=== PATIENT | female | born 1940 | race Caucasian/White ===

== ENCOUNTER → 2017-08-29 | Outpatient (CLI) | payer MEDICARE | LOC: LABWHC1 12:02 | PROVIDERS: ATTEND Internal Medicine | DX: D68.51 Activated protein C resistance (principal) | CPT/HCPCS: 36415; 81241 ==

== ENCOUNTER → 2020-10-08 | Outpatient (CLI) | payer MEDICARE ==
--- NOTE | 2020-10-08 15:47 | XR ---
EXAMINATION TYPE: XR lumbar spine 2 or 3V DATE OF EXAM: 10/08/2020 COMPARISON: NONE HISTORY: Low back pain TECHNIQUE: 3 views lumbar spine FINDINGS: There is levoscoliosis of the lumbar spine with multilevel endplate sclerosis and osteophytosis. Mult ilevel facet arthropathy is present. Vertebral body heights are preserved. Vascular calcifications ar e seen. There is mild retrolisthesis of L3 on L4 measuring 4 mm. There is mild anterolisthesis of L4 on 5 measuring 5 mm. IMPRESSION: Levoscoliosis with multilevel disc disease and osteoarthritic changes of the lumbar spine. Mild retrolisthesis of L3 on 4 and mild anterolisthesis of L4 on 5.
== END | disposition home or self-care (01) ==
LOC: RADXRWHC 14:59
PROVIDERS: ATTEND Internal Medicine
DX: M51.36 Other intervertebral disc degeneration, lumbar region (principal); M41.86 Other forms of scoliosis, lumbar region; M43.16 Spondylolisthesis, lumbar region; M47.816 Spondylosis without myelopathy or radiculopathy, lumbar region
CPT/HCPCS: 72100

== ENCOUNTER → 2021-06-16 | Outpatient (CLI) | payer MEDICARE ==
--- NOTE | 2021-06-16 16:10 | XR ---
EXAMINATION TYPE: XR knee complete RT DATE OF EXAM: 06/16/2021 COMPARISON: None HISTORY: Pain in left knee TECHNIQUE: 3 view left knee FINDINGS: Joint spaces are preserved. Mild medial tibial plateau spurring is present. No joint effusi on is evident. Anterior superior patellar spur is noted. IMPRESSION: 1. Minimal degenerative joint changes left knee.
== END | disposition home or self-care (01) ==
LOC: RADXRMAIN 15:25
PROVIDERS: ATTEND Family Medicine
DX: M17.12 Unilateral primary osteoarthritis, left knee (principal)

== ENCOUNTER → 2021-08-24 | Outpatient (CLI) | payer MEDICARE ==
--- NOTE | 2021-08-25 07:19 | BD ---
EXAMINATION TYPE: Axial Bone Density DATE OF EXAM: 08/24/2021 COMPARISON: NONE CLINICAL HISTORY: 80 years year old Female. ICD-10 CODE: N95.9 OSTEOPOROSIS Height: 68.5 Weight: 185.5 FRAX RISK QUESTIONS: Alcohol (3 or more units per day): no Family History (Parent hip fracture): no Glucocorticoids (More than 3mos): no (Ex: prednisone, prednisolone, methylprednisolone, dexamethasone, and hydrocortisone). History of Fracture in Adulthood: no Secondary Osteoporosis: 1. Type 1 Diabetes: no 2. Hyperthyroidism: no 3. Menopause before 45: no 4. Malnutrition: no 5. Chronic liver disease: no Rheumatoid Arthritis: no Current Tobacco Use: no RISK FACTORS HISTORY OF: Surgery to Spine/Hip(right/left)/Wrist (right/left): no Family History of Osteoporosis: no Active: yes Diet low in dairy products/other sources of calcium: no Postmenopausal woman: yes Lost more than 2 inches in height since high school: no MEDICATIONS: Thyroid Medications: levothyroxine How Lon years Additional History: EXAM MEASUREMENTS: Bone mineral densitometry was performed using the [employer] System. Bone mineral density as measured about the Lumbar spine is: ----- L1-L4(G/cm2): 1.332 T Score Values are as follows: ----- L1: 2.6 ----- L2: -0.6 ----- L3: 0.9 ----- L4: 2.0 ----- L1-L4: 1.3 Bone mineral density : baseline Bone mineral density about the R hip (g/cm2): 0.793 Bone mineral density about the L hip (g/cm2): 0.828 T Score values are as follows: -----R Neck: -1.8 -----L Neck: -1.5 -----R Total: -0.9 -----L Total: -0.8 Bone mineral density : baseline FRAX%s: The graph provided illustrates a 14.1% chance for a major osteoporotic fx and a 3.7% chance f or the hips probability for fx in 10 years time. IMPRESSION: Osteopenia (T Score between -2.5 and -1). There is slightly increased risk of fracture and the patient may be considered for treatment. Re-Screen 2-5 years. NOTE: T-SCORE=SD OF THE YOUNG ADULT MEAN.
== END | disposition home or self-care (01) ==
LOC: RADBDWWP 15:46
PROVIDERS: ATTEND Internal Medicine
DX: M85.89 Other specified disorders of bone density and structure, multiple sites (principal); Z78.0 Asymptomatic menopausal state
CPT/HCPCS: 77080

== ENCOUNTER → 2023-02-21 | Outpatient (CLI) | payer MEDICARE ==
[2023-02-22 01:33] LABS: Blood Urea Nitrogen 21.9 mg/dL (9.0-27.0); Carbon Dioxide 22.2 mmol/L (21.6-31.8); Chloride 102 mmol/L (96-109); Potassium 5.5 mmol/L (3.5-5.5); Sodium 135 mmol/L (135-145)
[2023-02-22 02:47] LABS: HCT 38.7 % (37.2-46.3); HGB 12.5 g/dL (12.0-15.0); MCH 26.3 pg (27.0-32.0); MCHC 32.3 g/dL (32.0-37.0); MCV 81.3 FL (80.0-97.0); Mean Platelet Volume 12.7 FL (9.5-12.2); NRBC Per 100 WBC 0 X 10*3/uL (0.00-0.01); Platelet Count 212 X 10*3/uL (140-440); RBC 4.76 X 10*6/uL (4.10-5.20); RDW 14.5 % (11.5-14.5); WBC 6.73 X 10*3/uL (4.50-10.00)
== END | disposition home or self-care (01) ==
LOC: LABPAT 16:13
PROVIDERS: ATTEND Internal Medicine Clinical Cardiac Electrophysiology
DX: Z01.812 Encounter for preprocedural laboratory examination (principal); I48.0 Paroxysmal atrial fibrillation
CPT/HCPCS: 36415; 80051; 82565; 84520; 85027

== ENCOUNTER 2023-03-05 07:48 | Day surgery (SDC) | payer MEDICARE ==
[~2023-03-05 07:48] MED LIST: HYDROmorphone 0.5 MG/0.5 ML SYRINGE IVP PRN; LACTATED RINGERS 1,000 ML IV SCH; MIDAZOLAM 2 MG/2 ML VIAL IV PRN; ONDANSETRON 4 MG/2 ML VIAL IVP ONE; SODIUM CHLORIDE 0.9% 1,000 ML IV ONE; SODIUM CHLORIDE 0.9% 1,000 ML IV SCH
--- NOTE | 2023-03-05 09:47 | P.HPCAR ---
History of Present Illness This is Dr. Rosario dictating an H/P on this patient The patient was interviewed and examined IMPRESSION / ASSESSMENT: Recurrent paroxysmal atrial fibrillation Symptomatic with shortness of breath and feeling weak and fatigued during these episodes 1 episode associated with collapse requiring hospitalization Normal coronary arteries PLAN: Proceed with PVI/A. fib ablation HPI Patient continues to have palpitations and lightheadedness No chest discomfort No loss of consciousness Denies any fever chills cough expectoration ROS: No fever chills or rigors, no cough, phlegm or expectoration, no nausea, vomiting or diarrhea, no hematuria, dysuria, no musculoskeletal complaints, no strokes or seizures, no skin lesions. EXAMINATION: Afebrile 97.0, pulse rate 69, blood pressure 141/70 Breath sounds are clear no rhonchi no crackles Heart sounds S1 and S2 are normal Abdomen soft Extremities are warm REVIEW OF LABS, ECG & MEDICAL DATA Metoprolol, losartan, levothyroxine 112 g daily, Lexapro Lipitor and ELIQUIS Repeat TSH pending Physical Exam Vitals: Vital Signs Temp Pulse Resp BP Pulse Ox 03/05/23 08:07 97.0 F L 69 16 141/70 97 Intake and Output 03/04/23 03/05/23 03/05/23 22:59 06:59 14:59 Intake Total 0 Balance 0 Intake: IV 0 Other: Weight 82.6 kg Past Medical History Past Medical History: Atrial Fibrillation, Hyperlipidemia, Hypertension, Thyroid Disorder Additional Past Medical History / Comment(s): change in bowel habits wheezing last couple of days having some shortness of breath with ambulation, See Dr Rosario's h & p History of Any Multi-Drug Resistant Organisms: None Reported Past Surgical History: Breast Surgery Additional Past Surgical History / Comment(s): colonoscopy, partial thyroidectomy, breast biopsy,loop recorder Past Anesthesia/Blood Transfusion Reactions: Previous Problems w/ Anesthesia Additional Past Anesthesia/Blood Transfusion Reaction / Comment(s): had problem once w/slow heart rate after a surg. slow to wake Smoking Status: Former smoker - Past Family History Sister(s) Family Medical History: Cancer Brother(s) Family Medical History: Cancer Physical Examination Vital Signs Temp Pulse Resp BP Pulse Ox 03/05/23 08:07 97.0 F L 69 16 141/70 97 Intake and Output 03/04/23 03/05/2323 22:59 06:59 14:59 Intake Total 0 Balance 0 Intake: IV 0 Other: Weight 82.6 kg Results Current Medications Generic Name Dose Route Start Last Admin Trade Name Bienvenido PRN Reason Stop Dose Admin Hydromorphone HCl 0.5 mg 03/05/23 07:00 Hydromorphone 0.5 Mg/0.5 Ml Syringe IVP 03/05/23 23:00 Q5M PRN Phase 1 or 2 - Pain Control Sodium Chloride 1,000 mls @ 20 mls/hr 03/05/23 05:54 Saline 0.9% IV 04/04/23 05:55 .Q24H MARIA LUISA Lactated Ringer's 1,000 mls @ 20 mls/hr 03/05/23 05:54 Lactated Ringers IV 04/04/23 05:55 .Q24H MARIA LUISA Midazolam HCl 2 mg 03/05/23 07:00 Midazolam 2 Mg/2 Ml Vial IV 03/05/23 23:00 ONCE PRN Pre-Op Anxiety Intake and Output 03/04/23 03/05/23 03/05/23 22:59 06:59 14:59 Intake Total 0 Balance 0 Intake: IV 0 Other: Weight 82.6 kg Patient Weight 03/06/23 06:59 Weight 82.6 kg
[2023-03-05] MEDS ORDERED: HEPARIN SOD,PORK IN 0.45% NACL 25,000 UNIT in 0.45% NACL 1 250ML.BAG IV ONE (10:05)
[2023-03-05] MEDS ORDERED: LIDOCAINE 1% INJ 10MG/ML (20 ML MDV) SQ ONE (10:05)
[2023-03-05 10:14] LABS: T4, Free (Free Thyroxine) 2.33 ng/dL (0.78-2.19)
[2023-03-05] MEDS ORDERED: IOPAMIDOL-370 100ML BTL INJ ONE (10:46)
[2023-03-05] MEDS ORDERED: ACETAMINOPHEN TAB 325 MG TAB PO PRN (13:07)
[2023-03-05] MEDS ORDERED: ACETAMINOPHEN IV (For NPO) 1,000 MG in EMPTY BAG 1 BAG IVPB ONE (13:07)
--- NOTE | 2023-03-05 13:14 | P.EPPROC ---
- EP Procedure Note Electrophysiology Procedure Note: PROCEDURE A. fib ablation DIAGNOSIS Paroxysmal Atrial fibrillation, symptomatic, refractory to therapy RESULT No left atrial appendage mass seen on intracardiac echo Enlarged left atrium Thickened pericardium with pericardial exudate, small, at the base of the LV consistent with chronic pericarditis Elevated left atrial pressures, mean pressure 18 mmHg Successful A. fib ablation/pulmonary vein isolation of all veins using cryo- ablation Complete entrance block in all 4 veins confirmed No evidence for phrenic nerve injury Esophageal deflection YES Electrical cardioversion with a synchronized shock across the chest YES PROCEDURE DETAILS Written informed consent prior to procedure. Patient brought to the EP lab. General anesthesia given. Heparin administered. A city maintained above 300 seconds Both groins prepped and draped per protocol and venous sheaths placed. Esop hagus intubated, circa catheter for temperature monitoring an endoscope for possible esophageal deflection. Phrenic nerve monitoring performed. Esophageal temperature monitoring performed. Esophageal deflection performed if circa catheter overlapping with the balloon or circa temperature less than 27.5C Intracardiac echocardiography performed. Pericardium evaluated. Left atrial appendage evaluated. Left atrium evaluated along with pulmonary veins Transseptal catheterization performed under fluoroscopic guidance and intracardiac echo guidance Cryoablation sheath exchanged, balloon catheter along with achieve catheter placed in the left atrium. Pulmonary veins isolated in the following sequence: Left superior pulmonary vein followed by left inferior pulmonary vein, followed by right inferior pulmonary vein and lastly right superior pulmonary vein. Phrenic nerve stimulation along with capture thresholds within the SVC and right superior pulmonary vein to identify the phrenic nerve proximity to the cryo- balloon. Pulmonary veins isolated and confirmed with entrance and exit block. Phrenic nerve integrity confirmed at the end of the procedure Electrical cardioversion performed for persistence of atrial fibrillation despite successful ablation. Diagnostic catheters for the high right atrium, His bundle, coronary sinus placed. LA and RA pressures recorded RA pressure: 15 LA pressure: 15/03/18 Diagnostic EP study with coronary sinus pacing and recording Baseline measurements: HV interval 50 ms after electrical cardioversion WA interval 200 ms, QRS 153 ms, QT interval 500 ms, sinus cycle length 1300 ms Venous sheaths were removed and hemostasis assured with a closure device. Patient extubated and transferred to recovery PROCEDURES PERFORMED Diagnostic EP study CS pacing and recording Left and right transseptal catheterization Catheter the mapping of the tachycardia Intracardiac echocardiography Pulmonary vein isolation with transseptal and comprehensive EPS, [id number] Electrical cardioversion with a synchronized shock across the chest [id number]
--- NOTE | 2023-03-05 13:17 | P.PRLE ---
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
[2023-03-05] MEDS: APIXABAN 5 MG TAB PO SCH (20:02)
[2023-03-05] MEDS ORDERED: ATORVASTATIN 10 MG TAB PO SCH (21:00)
[2023-03-05] MEDS ORDERED: LOSARTAN 50 MG TAB PO SCH (21:00)
[2023-03-06 02:45] VITALS: RESP 15
[2023-03-06 07:30] VITALS: BP 122/64; PULSE 58; TEMP 98.3
[2023-03-06] MEDS ORDERED: METOPROLOL SUCCINATE (ER) 25 MG TAB.ER.24H PO SCH (09:00)
[2023-03-06] MEDS ORDERED: ESCITALOPRAM 10 MG TAB PO SCH (09:00)
[2023-03-06] MEDS: APIXABAN 5 MG TAB PO SCH (09:21)
--- NOTE | 2023-03-06 19:30 | P.DS ---
Providers Attending physician: Wilbert Rosario Primary care physician: Matthew Tucker MD Hospital Course: Patient is doing well. She has a sore throat She is no chest discomfort She walked around the room and the bathroom No dizziness On examination heart sounds are normal Abdomen is soft nontender Groins of healed well no hematoma no swelling Lungs are clear Twelve-lead EKG is normal Final diagnosis Symptomatic atrial fibrillation, paroxysmal Refractory to therapy Suppressed TSH on repeat TSH measurements today Chronic Pericarditis on intracardiac echo consistent with her history of overt about 1 year back Plan Continue ELIQUIS Reduce the dose of levothyroxine to 88 g by mouth daily Continue other cardiac medications Follow-up with Dr. Daly in 1 week Plan - Discharge Summary Discharge Rx Participant: No New Discharge Prescriptions: New Levothyroxine Sodium 88 mcg PO DAILY #90 tab Discontinued Levothyroxine Sodium [Synthroid] 112 mcg PO DAILY No Action Atorvastatin [Lipitor] 10 mg PO HS Losartan Potassium [Cozaar] 100 mg PO HS Metoprolol Succinate (ER) [Toprol Xl] 12.5 mg PO DAILY Apixaban [Eliquis] 5 mg PO BID Escitalopram [Lexapro] 10 mg PO DAILY Discharge Medication List Atorvastatin [Lipitor] 10 mg PO HS 01/13/16 [History] Losartan Potassium [Cozaar] 100 mg PO HS 01/13/16 [History] Apixaban [Eliquis] 5 mg PO BID 02/28/23 [History] Escitalopram [Lexapro] 10 mg PO DAILY 02/28/23 [History] Metoprolol Succinate (ER) [Toprol Xl] 12.5 mg PO DAILY 02/28/23 [History] Levothyroxine Sodium 88 mcg PO DAILY #90 tab 03/05/23 [Rx] Follow up Appointment(s)/Referral(s): Wilbert Rosario MD [STAFF PHYSICIAN] - As Needed (Follow-up with Dr. Dlay in 1 week) Monica Daly MD [STAFF PHYSICIAN] - 03/12/23 2:15 pm Patient Instructions/Handouts: Cardiac Ablation (DC) Activity/Diet/Wound Care/Special Instructions: Post EP study - Ablation instructions 1. Keep access sites dry for 2 days. 2. No heavy lifting or straining for 2 days. 3. Avoid bending the hips repeatedly for 2 days. 4. You may go up and down stairs slowly Call if the following is noted 1. Bleeding, increasing swelling or pain at the access sites. 2. Increasing chest discomfort, especially upon taking a deep breath. 3. Increasing shortness of breath, at rest or with exertion. 4. Undue cough / phlegm 5. Difficulty or pain while swallowing. 6. Pain or change in color in the extremities. 7. Fever, chills, rigors. 8. Increasing headache or neurologic symptoms. 9. Dizziness, fainting, palpitations Reduce levothyroxine to 88 g by mouth daily Drink plenty of water and move around, walking around. Discharge Disposition: HOME SELF-CARE
== END 2023-03-06 14:10 | disposition home or self-care (01) ==
LOC: CATHEP 07:48 → 6NMEDSUR 11:48 → CATHEP 03-06 14:10
PROVIDERS: ATTEND Internal Medicine Clinical Cardiac Electrophysiology
DX: I48.0 Paroxysmal atrial fibrillation (principal); I31.9 Disease of pericardium, unspecified; I10 Essential (primary) hypertension; E78.5 Hyperlipidemia, unspecified; Z90.49 Acquired absence of other specified parts of digestive tract; Z87.891 Personal history of nicotine dependence; Z79.899 Other long term (current) drug therapy
CPT/HCPCS: 93656; 86900; 86901; 84439; 84443 ×2; 86850; C1894 ×2; C1769 ×3; C1760; C1730 ×2; C1759; C1893; C1733; C1766; J2001; J0131; Q9967; J1644

== ENCOUNTER → 2023-04-04 | Outpatient (CLI) | payer MEDICARE ==
[2023-04-04 18:50] LABS: T4, Free (Free Thyroxine) 1.53 ng/dL (0.80-1.80)
== END | disposition home or self-care (01) ==
LOC: LABWHC1 14:02
PROVIDERS: ATTEND Internal Medicine Interventional Cardiology
DX: I48.91 Unspecified atrial fibrillation (principal); E03.9 Hypothyroidism, unspecified
CPT/HCPCS: 36415; 84439; 84443

== ENCOUNTER → 2023-05-24 | Outpatient (CLI) | payer MEDICARE ==
[2023-05-24 16:42] LABS: HCT 40.2 % (37.2-46.3); HGB 12.5 g/dL (12.0-15.0); MCH 24.7 pg (27.0-32.0); MCHC 31.1 g/dL (32.0-37.0); MCV 79.3 FL (80.0-97.0); Mean Platelet Volume 11.5 FL (9.5-12.2); NRBC Per 100 WBC 0 X 10*3/uL (0.00-0.01); Platelet Count 202 X 10*3/uL (140-440); RBC 5.07 X 10*6/uL (4.10-5.20); RDW 16.2 % (11.5-14.5); WBC 7.58 X 10*3/uL (4.50-10.00)
[2023-05-24 16:56] LABS: Blood Urea Nitrogen 14.7 mg/dL (9.0-27.0); Carbon Dioxide 26.1 mmol/L (21.6-31.8); Chloride 101 mmol/L (96-109); Potassium 5.4 mmol/L (3.5-5.5); Sodium 137 mmol/L (135-145)
== END | disposition home or self-care (01) ==
LOC: LABPAT 10:06
PROVIDERS: ATTEND Internal Medicine Clinical Cardiac Electrophysiology
DX: Z01.812 Encounter for preprocedural laboratory examination (principal); I48.0 Paroxysmal atrial fibrillation
CPT/HCPCS: 36415; 80051; 82565; 84520; 85027

== ENCOUNTER 2023-05-28 13:10 | Day surgery (SDC) | payer MEDICARE ==
[2023-05-23 10:13] VITALS: BMI 27.3
[2023-05-28] MEDS: SODIUM CHLORIDE 0.9% 1,000 ML IV SCH (13:54)
[2023-05-28] MEDS ORDERED: PROPOFOL 10 MG/ML 20 ML VIAL IV ONE (14:18)
[2023-05-28] MEDS ORDERED: PHENYLEPHRINE 10 MG/ML VIAL ONE (14:18)
[2023-05-28] MEDS ORDERED: NEOSTIGMINE 1 MG/ML 10 ML VIAL ONE (14:18)
[2023-05-28] MEDS ORDERED: diphenhydrAMINE 50 MG/ML 1 ML VIAL ONE (14:18)
[2023-05-28] MEDS ORDERED: GLYCOPYRROLATE 0.2 MG/ML 2 ML VIAL ONE (14:18)
[2023-05-28] MEDS ORDERED: SUCCINYLCHOLINE CHLORIDE 200 MG/10 ML VIAL IV ONE (14:18)
[2023-05-28] MEDS ORDERED: HEPARIN SODIUM,PORCINE 5,000 UNIT/ML 1 ML VIAL ONE (14:18)
[2023-05-28] MEDS ORDERED: LIDOCAINE 1% INJ 10MG/ML (20 ML MDV) ONE ×2 (14:18→14:40)
[2023-05-28] MEDS ORDERED: fentaNYL (PF) 50 MCG/ML 2 ML AMP ONE (14:18)
[2023-05-28] MEDS ORDERED: PROTAMINE SULFATE 10 MG/ML 5 ML VIAL ONE (14:18)
[2023-05-28] MEDS ORDERED: ROCURONIUM 10 MG/ML (5 ML VIAL) IV ONE (14:18)
[2023-05-28] MEDS: LIDOCAINE 1% INJ 10MG/ML (20 ML MDV) SQ ONE (14:47)
[2023-05-28] MEDS: HEPARIN SODIUM,PORCINE 10,000 UNIT in SODIUM CHLORIDE 0.9% 1,000 ML IRRIGATION ONE (15:15)
--- NOTE | 2023-05-28 16:05 | P.HPCAR ---
History of Present Illness This is Dr. Rosario dictating an H/P on this patient The patient was interviewed and examined IMPRESSION / ASSESSMENT: Recurrent sustained atrial flutter with severe bradycardia intermittently associated with syncope When in sinus rhythm no significant bradycardia noted History of atrial fibrillation, paroxysmal status post cryoablation of the pulmonary veins Patient has a loop monitor in situ History of pericarditis, likely viral Hypothyroidism Underlying sick sinus syndrome with AV node disease PLAN: Ablation for atrial flutter No beta-blockers Continue levothyroxine 75 mcg p.o. daily Continue monitoring for any bradycardia Permanent pacemaker only if she has bradycardia in sinus rhythm or she has recurrent atrial fibrillation that requires rate control medications HPI Patient continues to feel fatigued tired She has recurrent palpitations she does not feel well She came in with an atrial arrhythmia consistent with typical atrial flutter today ROS: No fever chills or rigors, no cough, phlegm or expectoration, no nausea, vomiting or diarrhea, no hematuria, dysuria, no musculoskeletal complaints, no strokes or seizures, no skin lesions. EXAMINATION: Heart rate is irregular in the 70s, blood pressure 177/80 mmHg afebrile Breath sounds are reduced bilaterally no rhonchi no crackles Heart sounds S1-S2 irregular no murmurs No lower extremity edema REVIEW OF LABS, ECG & MEDICAL DATA On levothyroxine 75 mcg p.o. daily, losartan 50 mg twice daily, atorvastatin and Eliquis 5 mg twice daily Physical Exam Vitals: Vital Signs Temp Pulse Resp BP Pulse Ox 05/28/23 13:53 97.5 F L 74 18 177/80 94 L Intake and Output 05/28/23 05/28/23 05/28/23 06:59 14:59 22:59 Intake Total 220 267 Balance 220 267 Intake: IV 220 267 Other: Weight 83 kg Past Medical History Past Medical History: Atrial Fibrillation, Atrial Flutter, Hyperlipidemia, Hypertension, Thyroid Disorder Additional Past Medical History / Comment(s): See Dr Rosario's H&P,prednisone Apr 2023,hospitalized @ [facility] for atrial flutter and syncope in Apr 2023 History of Any Multi-Drug Resistant Organisms: None Reported Past Surgical History: Breast Surgery, Cardiac Ablation Additional Past Surgical History / Comment(s): colonoscopy, partial thyroidectomy, breast biopsy,cardioversion Past Anesthesia/Blood Transfusion Reactions: Previous Problems w/ Anesthesia, Motion Sickness Additional Past Anesthesia/Blood Transfusion Reaction / Comment(s): had problem once w/slow heart rate after a surg- pt does not recall. has a hard time waking up after anesthesia Smoking Status: Former smoker - Past Family History Sister(s) Family Medical History: Cancer Brother(s) Family Medical History: Cancer Son(s) Family Medical History: Cancer Additional Family Medical History / Comment(s): testicular Physical Examination Vital Signs Temp Pulse Resp BP Pulse Ox 05/28/23 13:53 97.5 F L 74 18 177/80 94 L Intake and Output 05/28/23 05/28/23 05/28/23 06:59 14:59 22:59 Intake Total 220 267 Balance 220 267 Intake: IV 220 267 Other: Weight 83 kg Results Current Medications Generic Name Dose Route Start Last Admin Trade Name Freq PRN Reason Stop Dose Admin Sodium Chloride 1,000 mls @ 20 mls/hr 05/28/23 05:58 05/28/23 13:54 Saline 0.9% IV 06/27/23 05:59 220 mls .Q24H MARIA LUISA Administration Lactated Ringer's 1,000 mls @ 20 mls/hr 05/28/23 05:58 Lactated Ringers IV 06/27/23 05:59 .Q24H MARIA LUISA Intake and Output 05/28/23 05/28/23 05/28/23 06:59 14:59 22:59 Intake Total 220 267 Balance 220 267 Intake: IV 220 267 Other: Weight 83 kg Patient Weight 05/29/23 06:59 Weight 83 kg
--- NOTE | 2023-05-28 16:09 | P.PRLE ---
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 Fermin has atrial fibrillation and she has undergone successful ablation of the pulmonary veins for management of atrial fibrillation However she has had recurrent episodes of typical atrial flutter symptomatic, with intrinsic rate control While on beta-blockers, she had significant bradycardia with pauses resulting in syncope She was admitted to the [facility] for this I had performed electrical cardioversion on her and while in sinus rhythm, in the absence of beta-blockers, she has had no bradycardia Hello she went back into atrial flutter with a controlled ventricular response and was not feeling well She was brought in today for typical atrial flutter ablation Successful ablation was performed with bidirectional block Impression Paroxysmal atrial fibrillation status post cryoablation of the pulmonary veins in the past Viral pericarditis with small pericardial effusion with thickened pericardium Recurrent typical atrial flutter intrinsically rate controlled Severe bradycardia on metoprolol during atrial flutter only When she is off beta-blockers, she has no evidence for sinus bradycardia or AV block while in normal rhythm Plan Continue levothyroxine 75 mcg p.o. daily. Her TSH has normalized Continue Eliquis 5 mg twice daily No beta-blockers no AV cornell blockers We will continue to monitor her via her implanted loop and as long as she has no significant bradycardia or does not require beta-blockers or other AV cornell blocking drugs, she will not require permanent pacing Thank you for entrusting me with the care of the patient Warm regards Sincerely Wilbert Rosario
--- NOTE | 2023-05-28 16:15 | P.EPPROC ---
- EP Procedure Note Electrophysiology Procedure Note: Diagnosis Typical atrial flutter, intrinsically rate controlled Severe bradycardia with pauses only during atrial flutter when given AV cornell blocking drugs Very symptomatic during atrial flutter Final diagnosis Cavotricuspid isthmus dependent atrial flutter Status post successful mapping followed by ablation Complete bidirectional block with differential pacing Mildly abnormal sinus node function and a mildly abnormal AV node function Plan Avoid all AV cornell blocking drugs Monitor for any bradycardia arrhythmias and atrial fibrillation via implanted loop monitor Continue Eliquis Details Patient was brought to the EP lab in a fasting state. Written informed consent was obtained prior to the procedure. Procedure performed under general anesthesia IV heparin given through the procedure Venous sheaths placed in the right left femoral veins Diagnostic mapping and ablation catheters placed Intracardiac echo revealed thickened pericardium with small effusion, chronic consistent with old viral pericarditis, chronic No intracardiac masses in the LA or left atrial appendage or right atrium Patient was in atrial arrhythmia with a cycle length of about 240 ms Diagnostic catheters placed in the coronary sinus Mapping and ablation catheter placed in the cavotricuspid isthmus Entrainment mapping confirmed cavotricuspid dependency Electrical cardioversion performed 3D electroanatomic mapping performed in the cavotricuspid isthmus Thick eustachian ridge A complete line of block was made without any inotropic gaps This line was interrogated with differential pacing Isthmus conduction time 157 ms uniformly across the line Bidirectional block proven Following that in sinus rhythm EP study performed Sinus cycle length 1 207 ms, CO interval 198 ms, QRS 165 ms right bundle branch block pattern and QT interval 476 ms AH interval 104 ms and HV interval 41 ms Sinus node recovery times at a pacing cycle length of 600 ms was 1513 ms., Mildly prolonged AV node Wenckebach block 440 ms, mildly prolonged All venous sheaths removed Hemostasis assured Patient tolerated procedure well without any acute complications
[2023-05-28] MEDS ORDERED: ACETAMINOPHEN TAB 325 MG TAB PO PRN (16:16)
[2023-05-28] MEDS: ACETAMINOPHEN IV (For NPO) 1,000 MG in EMPTY BAG 1 BAG IVPB ONE (16:31)
[2023-05-28] MEDS: LACTATED RINGERS 1,000 ML IV SCH (19:40)
[2023-05-28] MEDS: LOSARTAN 50 MG TAB PO SCH (20:37)
[2023-05-28] MEDS: APIXABAN 5 MG TAB PO SCH (20:37)
[2023-05-28] MEDS: ATORVASTATIN 10 MG TAB PO SCH (20:37)
[2023-05-29 07:47] VITALS: BP 133/72; PULSE 58; RESP 19; TEMP 97.8
--- NOTE | 2023-05-29 08:39 | US ---
EXAMINATION TYPE: US lower ext pseudo artery LT DATE OF EXAM: 05/29/2023 COMPARISON: NONE CLINICAL INDICATION: Female, 82 years old with history of postop pain, r/o pseudoaneurysm; left groin EXAM PERFORMED: Grayscale and color Doppler duplex imaging performed of the groin, post cardiac hanh ter to assess for pseudoaneurysm. SIDE PERFORMED: Left Color and Waveform Doppler performed to assess for the presence of pseudoaneurysm; Is there ultrasound evidence of a pseudoaneurysm: no Is there evidence of AV shunting: no Is there a fluid collection present: no IMPRESSION: The variety lathe operator was unable to identify a pseudoaneurysm within the left groin.
[2023-05-29] MEDS: ESCITALOPRAM 10 MG TAB PO SCH (09:08)
[2023-05-29] MEDS: LEVOTHYROXINE 75 MCG TAB PO SCH (09:08)
--- NOTE | 2023-05-29 10:30 | P.DS ---
Providers Attending physician: Wilbert Rosario Primary care physician: Matthew Tucker MD Hospital Course: Patient is doing well. No chest discomfort dizziness or lightheadedness Rhythm is regular No chest pain minimal groin tenderness Normal heart sounds regular No JVD Lungs are clear no rhonchi no crackles Mild hematoma in the left groin but no evidence for pseudoaneurysm transfer to Twelve-lead EKG shows mildly prolonged MN interval right bundle branch block pattern sinus mechanism Impression Typical atrial flutter, intrinsically rate controlled and intermittently with associated severe bradycardia/pauses and syncope Failed electrical cardioversion that was performed a few weeks back Very symptomatic from this rhythm During sinus rhythm no bradycardia noted Previously cryoablation of the pulmonary veins now presenting with recurrent atrial flutter Abnormal sinus node function and AV node function with mildly prolonged MN interval at baseline Beta-blockers were discontinued completely Suggest Continue anticoagulation Continue antihypertensive therapy Avoid all AV cornell blocking drugs Continue monitoring of the rhythm via the loop monitor Follow-up with Dr. Daly in 7 to 10 days Plan - Discharge Summary Discharge Rx Participant: No New Discharge Prescriptions: New Levothyroxine Sodium [Euthyrox] 75 mcg PO DAILY #90 tablet Discontinued Levothyroxine Sodium 75 mcg PO DAILY No Action Atorvastatin [Lipitor] 10 mg PO HS Losartan Potassium [Cozaar] 50 mg PO BID Apixaban [Eliquis] 5 mg PO BID Escitalopram [Lexapro] 10 mg PO DAILY Discharge Medication List Atorvastatin [Lipitor] 10 mg PO HS 01/13/16 [History] Losartan Potassium [Cozaar] 50 mg PO BID 01/13/16 [History] Apixaban [Eliquis] 5 mg PO BID 02/28/23 [History] Escitalopram [Lexapro] 10 mg PO DAILY 02/28/23 [History] Levothyroxine Sodium [Euthyrox] 75 mcg PO DAILY #90 tablet 05/28/23 [Rx] Follow up Appointment(s)/Referral(s): Monica Daly MD [STAFF PHYSICIAN] - 06/05/23 8:45 am (Appointment made with [facility]) Activity/Diet/Wound Care/Special Instructions: Post EP study - Ablation instructions 1. Keep access sites dry for 2 days. 2. No heavy lifting or straining for 2 days. 3. Avoid bending the hips repeatedly for 2 days. 4. You may go up and down stairs slowly Call if the following is noted 1. Bleeding, increasing swelling or pain at the access sites. 2. Increasing chest discomfort, especially upon taking a deep breath. 3. Increasing shortness of breath, at rest or with exertion. 4. Undue cough / phlegm 5. Difficulty or pain while swallowing. 6. Pain or change in color in the extremities. 7. Fever, chills, rigors. 8. Increasing headache or neurologic symptoms. 9. Dizziness, fainting, palpitations Discharge Disposition: HOME SELF-CARE
== END 2023-05-29 12:02 | disposition home or self-care (01) ==
LOC: CATHEP 13:10 → 6NMEDSUR 15:45 → CATHEP 05-29 12:02
PROVIDERS: ATTEND Internal Medicine Clinical Cardiac Electrophysiology
DX: I48.0 Paroxysmal atrial fibrillation (principal); I48.92 Unspecified atrial flutter; I49.5 Sick sinus syndrome; E03.9 Hypothyroidism, unspecified; E78.5 Hyperlipidemia, unspecified; I10 Essential (primary) hypertension; Z98.890 Other specified postprocedural states; Z87.891 Personal history of nicotine dependence; Z80.43 Family history of malignant neoplasm of testis; Z79.899 Other long term (current) drug therapy
CPT/HCPCS: 92960; 93662; 93653; 86900; 86901; 86850; 93975; 93926; C1894; C1769; C1760; C1730; C1759; C1893; C1732; J1644; J2001

== ENCOUNTER 2023-06-09 23:18 | Emergency (ER) | payer MEDICARE ==
[2023-06-09 23:37] VITALS: RESP 18; TEMP 97.6
[2023-06-09 23:49] LABS: Basophils # (A) 0.1 k/uL (0-0.2); Basophils % (A) 1 %; Eosinophils # (A) 0.2 k/uL (0-0.7); Eosinophils % (A) 3 %; HCT 38.2 % (34.0-46.0); HGB 12.8 gm/dL (11.4-16.0); Lymphocytes # (A) 2.2 k/uL (1.0-4.8); Lymphocytes % (A) 30 %; MCH 26.1 pg (25.0-35.0); MCHC 33.4 g/dL (31.0-37.0); MCV 77.9 fL (80.0-100.0); Microcytosis Slight; Monocytes # (A) 0.5 k/uL (0-1.0); Monocytes % (A) 6 %; Neutrophils # (A) 4.3 k/uL (1.3-7.7); Neutrophils % (A) 58 %; Platelet Count 259 k/uL (150-450); RBC 4.91 m/uL (3.80-5.40); WBC 7.4 k/uL (3.8-10.6)
[2023-06-09] MEDS: hydrALAZINE HCL 20 MG/ML 1 ML VIAL IVP STA (23:49)
[2023-06-10] LABS: Glucose 104 mg/dL (74-99)
[2023-06-10 00:01] LABS: ALT 24 U/L (4-34); AST 28 U/L (14-36); African American GFR (CKD) 76 (>60 ml/min/1.73 sqM); Albumin 4.3 g/dL (3.5-5.0); Alkaline Phosphatase 119 U/L (38-126); Blood Urea Nitrogen 23 mg/dL (7-17); Calcium 10.5 mg/dL (8.4-10.2); Carbon Dioxide 25 mmol/L (22-30); Non-African American GFR(CKD) 66 (>60 ml/min/1.73 sqM); Potassium 4.2 mmol/L (3.5-5.1); Sodium 130 mmol/L (137-145); Total Bilirubin 0.5 mg/dL (0.2-1.3); Total Protein 7.1 g/dL (6.3-8.2)
[2023-06-10 00:29] LABS: Anion Gap 5 mmol/L; Chloride 100 mmol/L (98-107)
[2023-06-10] MEDS: SODIUM CHLORIDE 0.9% 500 ML 500 ML IV ONE (00:38)
[2023-06-10] MEDS: HYDROcodone/APAP 7.5-325MG 1 EACH TAB PO ONE (00:39)
--- NOTE | 2023-06-10 01:07 | ED ---
General Adult HPI - General Chief complaint: Recheck/Abnormal Lab/Rx Stated complaint: Elevated bp Time Seen by Provider: 06/09/23 23:26 Source: patient Mode of arrival: ambulatory Limitations: no limitations - History of Present Illness Initial comments: 82-year-old female presenting with chief complaint of elevated blood pressure. Patient noticed yesterday that her blood pressure was elevated in the 160 systolic range. She states that since then it has been progressively rising. She admits to a mild dull headache. Today she noticed that it was over 200 at home and came to the ER. She takes losartan 50 mg twice a day. She follows with paint grinder Dr. Daly. She has not been ill recently. No [id number] medications have been taken. No chest pain, difficulty breathing, abdominal pain, blurry vision, nausea, vomiting. - Related Data Home Medications Medication Instructions Recorded Confirmed Atorvastatin [Lipitor] 10 mg PO HS 01/13/16 05/28/23 Losartan Potassium [Cozaar] 50 mg PO BID 01/13/16 05/28/23 Apixaban [Eliquis] 5 mg PO BID 02/28/23 05/28/23 Escitalopram [Lexapro] 10 mg PO DAILY 02/28/23 05/28/23 Previous Rx's Medication Instructions Recorded Levothyroxine Sodium [Euthyrox] 75 mcg PO DAILY #90 tablet 05/28/23 Allergies Allergy/AdvReac Type Severity Reaction Status Date / Time adhesive Allergy Rash/Hives Verified 06/09/23 23:23 ciprofloxacin [From Cipro] Allergy Rash/Hives Verified 06/09/23 23:23 erythromycin base Allergy Rash/Hives Verified 06/09/23 23:23 Penicillins Allergy Rash/Hives Verified 06/09/23 23:23 Sulfa (Sulfonamide Allergy Rash/Hives, Verified 06/09/23 23:23 Antibiotics) jittery Review of Systems ROS Statement: Those systems with pertinent positive or pertinent negative responses have been documented in the HPI. ROS Other: All systems not noted in ROS Statement are negative. Past Medical History Past Medical History: Atrial Fibrillation, Atrial Flutter, Hyperlipidemia, Hypertension, Thyroid Disorder Additional Past Medical History / Comment(s): See Dr Rosario's H&P,prednisone Apr 2023,hospitalized @ [facility] for atrial flutter and syncope in Apr 2023 History of Any Multi-Drug Resistant Organisms: None Reported Past Surgical History: Ablation, Breast Surgery, Cardiac Ablation Additional Past Surgical History / Comment(s): colonoscopy, partial thyroidectomy, breast biopsy,cardioversion Past Anesthesia/Blood Transfusion Reactions: Previous Problems w/ Anesthesia, Motion Sickness Additional Past Anesthesia/Blood Transfusion Reaction / Comment(s): had problem once w/slow heart rate after a surg- pt does not recall. has a hard time waking up after anesthesia Past Psychological History: Anxiety Smoking Status: Former smoker Past Alcohol Use History: None Reported Past Drug Use History: None Reported - Past Family History Sister(s) Family Medical History: Cancer Brother(s) Family Medical History: Cancer Son(s) Family Medical History: Cancer Additional Family Medical History / Comment(s): testicular General Exam Limitations: no limitations General appearance: alert, in no apparent distress Head exam: Present: atraumatic, normocephalic Eye exam: Present: normal appearance Neck exam: Present: normal inspection Respiratory exam: Present: normal lung sounds bilaterally. Absent: respiratory distress, wheezes, rales, rhonchi, stridor Cardiovascular Exam: Present: regular rate, normal rhythm, normal heart sounds. Absent: systolic murmur, diastolic murmur, rubs, gallop, clicks Neurological exam: Present: alert, oriented X3 Psychiatric exam: Present: normal affect, normal mood Skin exam: Present: warm, dry Course Vital Signs 06/09/23 06/09/23 06/10/23 23:21 23:47 00:10 Temperature 97.6 F Pulse Rate 73 62 81 Respiratory 18 18 18 Rate Blood Pressure 222/100 198/100 164/77 O2 Sat by Pulse 99 98 99 Oximetry 06/10/23 01:06 Temperature Pulse Rate 78 Respiratory 18 Rate Blood Pressure 137/86 O2 Sat by Pulse 98 Oximetry Medical Decision Making - Medical Decision Making Was pt. sent in by a medical professional or institution (, PA, FOOD SERVICE ORDER CLERK, urgent care, hospital, or fdc...) When possible be specific @ -No Did you speak to anyone other than the patient for history (EMS, parent, family, police, friend...)? What history was obtained from this source @ -No Did you review nursing and triage notes (agree or disagree)? Why? @ -I reviewed and agree with nursing and triage notes Were old charts reviewed (outside hosp., previous admission, EMS record, old EKG, old radiological studies, urgent care reports/EKG's, fdc records)? Report findings @ -Reviewed previous EKG Differential Diagnosis (chest pain, altered mental status, abdominal pain women, abdominal pain men, vaginal bleeding, weakness, fever, dyspnea, syncope, headache, dizziness, GI bleed, back pain, seizure, CVA, palpatations, mental health, musculoskeletal)? @ -Differential includes idiopathic hypertension, renal disease, CHF, medication induced, anxiety, this is not an all-inclusive list EKG interpreted by me (3pts min.). @ -Sinus rhythm with first-degree AV block. Ventricular rate 66. MI interval 220. QRS 154. QT 435. QTc 448. Right bundle branch block. No acute changes from previous EKG. X-rays interpreted by me (1pt min.). @ -None done CT interpreted by me (1pt min.). @ -None done U/S interpreted by me (1pt. min.). @ -None done What testing was considered but not performed or refused? (CT, X-rays, U/S, labs)? Why? @ -None What meds were considered but not given or refused? Why? @ -None Did you discuss the management of the patient with other professionals (professionals i.e. , PA, FOOD SERVICE ORDER CLERK, lab, RT, psych nurse, psychiatric social worker supervisor, cardiovascular disease specialist, teacher, campus security officer, case finisher)? Give summary @ -No Was smoking cessation discussed for >3mins.? @ -No Was critical care preformed (if so, how long)? @ -No Were there social determinants of health that impacted care today? How? (Homelessness, low income, unemployed, alcoholism, drug addiction, transportation, low edu. Level, literacy, decrease access to med. care, nursing home, rehab)? @ -No Was there de-escalation of care discussed even if they declined (Discuss DNR or withdrawal of care, Hospice)? DNR status @ -No What co-morbidities impacted this encounter? (DM, HTN, Smoking, COPD, CAD, Cancer, CVA, ARF, Chemo, Hep., AIDS, mental health diagnosis, sleep apnea, morbid obesity)? @ -Hypertension Was patient admitted / discharged? Hospital course, mention meds given and route, prescriptions, significant lab abnormalities, going to OR and other pertinent info. @ -82-year-old female with history of hypertension presenting with chief complaint of elevated blood pressure. She has a very mild and dull headache at this time. Otherwise no other symptoms. History and physical exam are conducted. Patient is given 10 mg of hydralazine. She is also given a 500 mL fluid bolus and [place] for her headache. Lab work requires no action. EKG shows no acute changes from previous. On reassessment patient's blood pressure has come down to 137/86. She is eagerly requesting discharge. She is instructed to follow-up with her PCP and paint grinder. She may increase her losartan to 100 mg twice a day as needed. Discharged home. Follow-up with PCP. Report back to ER with any new or worsening symptoms. Discussed return parameters and ans wered all questions. Patient conveyed verbal understanding and agreed to the plan. I discussed this case in detail with my attending Dr. Molina Undiagnosed new problem with uncertain prognosis? @ -No Drug Therapy requiring intensive monitoring for toxicity (Heparin, Nitro, Insulin, Cardizem)? @ -No Were any procedures done? @ -No Diagnosis/symptom? @ -Hypertension Acute, or Chronic, or Acute on Chronic? @ -Acute on chronic Uncomplicated (without systemic symptoms) or Complicated (systemic symptoms)? @ -complicated Side effects of treatment? @ -No Exacerbation, Progression, or Severe Exacerbation? @ -No Poses a threat to life or bodily function? How? (Chest pain, [place], [place], pneumonia, PE, COPD, DKA, ARF, appy, cholecystitis, CVA, Diverticulitis, Homicidal, Suicidal, threat to staff... and all critical care pts) @ -No - Lab Data Result diagrams: 06/09/23 23:41 06/09/23 23:41 Lab Results 06/09/23 06/09/23 06/09/23 Range/Units 23:41 23:41 23:41 WBC 7.4 (3.8-10.6) k/uL RBC 4.91 (3.80-5.40) m/uL Hgb 12.8 (11.4-16.0) gm/dL Hct 38.2 (34.0-46.0) % MCV 77.9 L (80.0-100.0) fL MCH 26.1 (25.0-35.0) pg MCHC 33.4 (31.0-37.0) g/dL RDW 16.0 H (11.5-15.5) % Plt Count 259 (150-450) k/uL MPV 8.0 Neutrophils % 58 % Lymphocytes % 30 % Monocytes % 6 % Eosinophils % 3 % Basophils % 1 % Neutrophils # 4.3 (1.3-7.7) k/uL Lymphocytes # 2.2 (1.0-4.8) k/uL Monocytes # 0.5 (0-1.0) k/uL Eosinophils # 0.2 (0-0.7) k/uL Basophils # 0.1 (0-0.2) k/uL Microcytosis Slight Sodium 130 L (137-145) mmol/L Potassium 4.2 (3.5-5.1) mmol/L Chloride 100 (98-107) mmol/L Carbon Dioxide 25 (22-30) mmol/L Anion Gap 5 mmol/L BUN 23 H (7-17) mg/dL Creatinine 0.84 (0.52-1.04) mg/dL Est GFR (CKD-EPI)AfAm 76 (>60 ml/min/1.73 sqM) Est GFR (CKD-EPI)NonAf 66 (>60 ml/min/1.73 sqM) Glucose 104 H (74-99) mg/dL Calcium 10.5 H (8.4-10.2) mg/dL Total Bilirubin 0.5 (0.2-1.3) mg/dL AST 28 (14-36) U/L ALT 24 (4-34) U/L Alkaline Phosphatase 119 (38-126) U/L Troponin I 0.024 (0.000-0.034) ng/mL Total Protein 7.1 (6.3-8.2) g/dL Albumin 4.3 (3.5-5.0) g/dL Disposition Clinical Impression: Hypertension Disposition: HOME SELF-CARE Condition: Good Instructions (If sedation given, give patient instructions): Hypertension (ED) Additional Instructions: Follow-up with PCP and paint grinder. Report back to ER with any new or worsen ing symptoms. You may double your losartan dose as needed. Is patient prescribed a controlled substance at d/c from ED?: No Referrals: Matthew Tucker MD [Primary Care Provider] - 1-2 days Time of Disposition: 01:06
[2023-06-10 01:36] VITALS: BP 137/86; PULSE 78
== END 2023-06-10 01:12 | disposition home or self-care (01) ==
LOC: EC 23:18
DX: I10 Essential (primary) hypertension (principal); I45.10 Unspecified right bundle-branch block; I44.4 Left anterior fascicular block; I48.91 Unspecified atrial fibrillation; E78.5 Hyperlipidemia, unspecified; F41.9 Anxiety disorder, unspecified; Z79.899 Other long term (current) drug therapy; Z79.01 Long term (current) use of anticoagulants; Z91.09 Other allergy status, other than to drugs and biological substances; Z88.0 Allergy status to penicillin; Z88.2 Allergy status to sulfonamides; Z88.1 Allergy status to other antibiotic agents; Z87.891 Personal history of nicotine dependence
CPT/HCPCS: 36415; 93005; 80053; 84484; 85025; 99284; 96374; 96361; J0360

== ENCOUNTER → 2023-07-23 | Outpatient (CLI) | payer MEDICARE ==
[2023-07-23 21:00] LABS: HCT 14.1 % (37.2-46.3); HGB 4.2 g/dL (12.0-15.0); MCH 26.3 pg (27.0-32.0); MCHC 29.8 g/dL (32.0-37.0); MCV 88.1 FL (80.0-97.0); Mean Platelet Volume 11.5 FL (9.5-12.2); NRBC Per 100 WBC 0 X 10*3/uL (0.00-0.01); Platelet Count 87 X 10*3/uL (140-440); RDW 18.3 % (11.5-14.5); WBC 3.36 X 10*3/uL (4.50-10.00)
[2023-07-23 21:21] LABS: Blood Urea Nitrogen 22.5 mg/dL (9.0-27.0); Carbon Dioxide 21.9 mmol/L (21.6-31.8); Chloride 99 mmol/L (96-109); Potassium 4.4 mmol/L (3.5-5.5); Sodium 132 mmol/L (135-145)
== END | disposition home or self-care (01) ==
LOC: LABPAT 15:41
PROVIDERS: ATTEND Internal Medicine Clinical Cardiac Electrophysiology
DX: Z01.812 Encounter for preprocedural laboratory examination (principal); I49.5 Sick sinus syndrome; I48.3 Typical atrial flutter; I48.0 Paroxysmal atrial fibrillation
CPT/HCPCS: 80051; 82565; 84520; 85027

== ENCOUNTER 2023-07-24 08:44 | Emergency (ER) | payer MEDICARE ==
--- NOTE | 2023-07-24 09:20 | ED ---
General Adult HPI - General Chief complaint: Recheck/Abnormal Lab/Rx Stated complaint: Transfusion sent by PCP Time Seen by Provider: 07/24/23 09:06 Source: patient Mode of arrival: wheelchair Limitations: no limitations - History of Present Illness Initial comments: Dictation was produced using [employer] dictation software. please excuse any grammatical, word or spelling errors. Chief Complaint: 82-year-old female presents to the ER for anemia History of Present Illness: Patient is 82-year-old female she had blood work drawn yesterday in preparation for pacemaker placement. She is found to have a hemoglobin of 4.2. Patient denies any black or bloody stools. Denies any nausea or vomiting. She does complain of perhaps may be slight noticeable weakness. Denies any history of GI bleed. She does take Eliquis for A-fib. The ROS documented in this emergency department record has been reviewed and confirmed by me. Those systems with pertinent positive or negative responses have been documented in the HPI. All other systems are other negative and/or noncontributory. - Related Data Home Medications Medication Instructions Recorded Confirmed Atorvastatin [Lipitor] 10 mg PO HS 01/13/16 05/28/23 Losartan Potassium [Cozaar] 50 mg PO BID 01/13/16 05/28/23 Apixaban [Eliquis] 5 mg PO BID 02/28/23 05/28/23 Escitalopram [Lexapro] 10 mg PO DAILY 02/28/23 05/28/23 Previous Rx's Medication Instructions Recorded Levothyroxine Sodium [Euthyrox] 75 mcg PO DAILY #90 tablet 05/28/23 Allergies Allergy/AdvReac Type Severity Reaction Status Date / Time adhesive Allergy Rash/Hives Verified 07/24/23 09:05 ciprofloxacin [From Cipro] Allergy Rash/Hives Verified 07/24/23 09:05 erythromycin base Allergy Rash/Hives Verified 07/24/23 09:05 Penicillins Allergy Rash/Hives Verified 07/24/23 09:05 Sulfa (Sulfonamide Allergy Rash/Hives, Verified 07/24/23 09:05 Antibiotics) jittery Review of Systems ROS Statement: Those systems with pertinent positive or pertinent negative responses have been documented in the HPI. ROS Other: All systems not noted in ROS Statement are negative. Past Medical History Past Medical History: Atrial Fibrillation, Atrial Flutter, Hyperlipidemia, Hypertension, Thyroid Disorder Additional Past Medical History / Comment(s): See Dr Rosario's H&P,prednisone Apr 2023,hospitalized @ [facility] for atrial flutter and syncope in Apr 2023 History of Any Multi-Drug Resistant Organisms: None Reported Past Surgical History: Ablation, Breast Surgery, Cardiac Ablation Additional Past Surgical History / Comment(s): colonoscopy, partial thyroidectomy, breast biopsy,cardioversion Past Anesthesia/Blood Transfusion Reactions: Previous Problems w/ Anesthesia, Motion Sickness Additional Past Anesthesia/Blood Transfusion Reaction / Comment(s): had problem once w/slow heart rate after a surg- pt does not recall. has a hard time waking up after anesthesia Past Psychological History: Anxiety Smoking Status: Former smoker Past Alcohol Use History: None Reported Past Drug Use History: None Reported - Past Family History Sister(s) Family Medical History: Cancer Brother(s) Family Medical History: Cancer Son(s) Family Medical History: Cancer Additional Family Medical History / Comment(s): testicular General Exam - General Exam Comments Initial Comments: PHYSICAL EXAM: General Impression: Alert and oriented x3, not in acute distress HEENT: Normocephalic atraumatic, extra-ocular movements intact, pupils equal and reactive to light bilaterally, mucous membranes moist. Cardiovascular: Heart regular rate and rhythm Chest: Able to complete full sentences, no retractions, no tachypnea Abdomen: abdomen soft, non-tender, non-distended, no organomegaly Musculoskeletal: Pulses present and equal in all extremities, no peripheral edema Motor: no focal deficits noted Neurological: CN II-XII grossly intact, no focal motor or sensory deficits noted Skin: Intact with no visualized rashes Psych: Normal affect and mood Rectal exam: No gross blood Limitations: no limitations Course Vital Signs 07/24/23 07/24/23 07/24/23 09:02 09:53 10:03 Temperature 97.6 F 97.8 F Pulse Rate 65 62 61 Respiratory 18 17 17 Rate Blood Pressure 120/68 133/71 136/78 O2 Sat by Pulse 98 95 95 Oximetry 07/24/23 11:14 Temperature Pulse Rate 72 Respiratory 17 Rate Blood Pressure 151/78 O2 Sat by Pulse 97 Oximetry Medical Decision Making - Medical Decision Making Was pt. sent in by a medical professional or institution (, PA, LINE INSTALLER TROLLEY, urgent care, hospital, or [place] health [facility] facility...) When possible be specific @ -No Did you speak to anyone other than the patient for history (EMS, parent, family, police, friend...)? What history was obtained from this source @ -No Did you review nursing and triage notes (agree or disagree)? Why? @ -I reviewed and agree with nursing and triage notes Were old charts reviewed (outside hosp., previous admission, EMS record, old EKG, old radiological studies, urgent care reports/EKG's, [place] health [facility] facility records)? Report findings @ -Yesterday's lab results were reviewed showing patient has hemoglobin of 4.2 signs of iron deficiency Differential Diagnosis (chest pain, altered mental status, abdominal pain women, abdominal pain men, vaginal bleeding, musculoskeletal, weakness, fever, dyspnea, syncope, headache, dizziness, GI bleed, back pain, seizure, CVA, palpatations, mental health)? @ -Not applicable EKG interpreted by me (3pts min.). @ -None done X-rays interpreted by me (1pt min.). @ -None done CT interpreted by me (1pt min.). @ -None done U/S interpreted by me (1pt. min.). @ -None done What testing was considered but not performed or refused? (CT, X-rays, U/S, labs)? Why? @ -None What meds were considered but not given or refused? Why? @ -None Did you discuss the management of the patient with other professionals (professionals i.e. , PA, LINE INSTALLER TROLLEY, lab, RT, psych nurse, social service agency director, production machine shop supervisor, teacher, commanding officer homicide squad, caser)? Give summary @ -No Was smoking cessation discussed for >3mins.? @ -No Was critical care preformed (if so, how long)? @ -No Were there social determinants of health that impacted care today? How? (Homelessness, low income, unemployed, alcoholism, drug addiction, transportation, low edu. Level, literacy, decrease access to med. care, usp, rehab)? @ -No Was there de-escalation of care discussed even if they declined (Discuss DNR or withdrawal of care, Hospice)? DNR status @ -No What co-morbidities impacted this encounter? (DM, HTN, Smoking, COPD, CAD, [place], CVA, ARF, Chemo, Hep., AIDS, mental health diagnosis, sleep apnea, morbid obesity)? @ -None Was patient admitted / discharged? Hospital course, mention meds given and route, prescriptions, significant lab abnormalities, going to OR and other pertinent info. @ -82-year-old female presents to the emergency department for abnormal outpatient labs. She states that these were preoperative labs in preparation for pacemaker placement. Patient has no symptoms of anemia. She does not appear to be pale. Physical exam and vital signs are negative. Stool occult blood is negative. She does not have any symptoms of GI bleed. Repeat labs were performed. Hemoglobin of 11.2. Rest of labs unremarkable. So occult blood is negative. Likely there was a outpatient lab error. Patient be dischar ged. Cardiology notified of likely blood result error. Undiagnosed new problem with uncertain prognosis? @ -No Drug Therapy requiring intensive monitoring for toxicity (Heparin, Nitro, Insulin, Cardizem)? @ -No Were any procedures done? @ -No Diagnosis/symptom? Acute, or Chronic, or Acute on Chronic? Uncomplicated (without systemic symptoms) or Complicated (systemic symptoms)? @ -Abnormal outpatient labs Side effects of treatment? @ -No Exacerbation, Progression, or Severe Exacerbation? @ -No Poses a threat to life or bodily function? How? (Chest pain, [place], [place], pneumonia, PE, COPD, DKA, ARF, appy, cholecystitis, CVA, Diverticulitis, Homicidal, Suicidal, threat to staff... and all critical care pts) @ -No - Lab Data Result diagrams: 07/24/23 09:39 07/24/23 09:39 Lab Results 07/24/23 07/24/23 07/24/23 Range/Units 09:37 09:39 09:39 WBC 6.6 (3.8-10.6) k/uL RBC 4.34 (3.80-5.40) m/uL Hgb 11.2 L (11.4-16.0) gm/dL Hct 34.8 (34.0-46.0) % MCV 80.1 (80.0-100.0) fL MCH 25.9 (25.0-35.0) pg MCHC 32.3 (31.0-37.0) g/dL RDW 16.6 H (11.5-15.5) % Plt Count 222 (150-450) k/uL MPV 8.7 Neutrophils % 69 % Lymphocytes % 19 % Monocytes % 7 % Eosinophils % 2 % Basophils % 1 % Neutrophils # 4.6 (1.3-7.7) k/uL Lymphocytes # 1.3 (1.0-4.8) k/uL Monocytes # 0.5 (0-1.0) k/uL Eosinophils # 0.1 (0-0.7) k/uL Basophils # 0.1 (0-0.2) k/uL Anisocytosis Slight Microcytosis Slight PT 10.2 (10.0-12.5) sec INR 0.9 (<1.2) APTT 22.3 (22.0-30.0) sec Sodium (137-145) mmol/L Potassium (3.5-5.1) mmol/L Chloride (98-107) mmol/L Carbon Dioxide (22-30) mmol/L Anion Gap mmol/L BUN (7-17) mg/dL Creatinine (0.52-1.04) mg/dL Est GFR (CKD-EPI)AfAm (>60 ml/min/1.73 sqM) Est GFR (CKD-EPI)NonAf (>60 ml/min/1.73 sqM) Glucose (74-99) mg/dL Calcium (8.4-10.2) mg/dL Stool Occult Blood (Negative) Blood Type B Positive Blood Type Recheck B Pos Bld Type Recheck Status No Antibody Screen NEGATIVE Spec Expiration Date 07/27/2023 - 233807/24/23 07/24/23 Range/Units 09:39 09:53 WBC (3.8-10.6) k/uL RBC (3.80-5.40) m/uL Hgb (11.4-16.0) gm/dL Hct (34.0-46.0) % MCV (80.0-100.0) fL MCH (25.0-35.0) pg MCHC (31.0-37.0) g/dL RDW (11.5-15.5) % Plt Count (150-450) k/uL MPV Neutrophils % % Lymphocytes % % Monocytes % % Eosinophils % % Basophils % % Neutrophils # (1.3-7.7) k/uL Lymphocytes # (1.0-4.8) k/uL Monocytes # (0-1.0) k/uL Eosinophils # (0-0.7) k/uL Basophils # (0-0.2) k/uL Anisocytosis Microcytosis PT (10.0-12.5) sec INR (<1.2) APTT (22.0-30.0) sec Sodium 133 L (137-145) mmol/L Potassium 4.6 (3.5-5.1) mmol/L Chloride 106 (98-107) mmol/L Carbon Dioxide 20 L (22-30) mmol/L Anion Gap 7 mmol/L BUN 22 H (7-17) mg/dL Creatinine 0.78 (0.52-1.04) mg/dL Est GFR (CKD-EPI)AfAm 83 (>60 ml/min/1.73 sqM) Est GFR (CKD-EPI)NonAf 72 (>60 ml/min/1.73 sqM) Glucose 112 H (74-99) mg/dL Calcium 10.3 H (8.4-10.2) mg/dL Stool Occult Blood Negative (Negative) Blood Type Blood Type Recheck Bld Type Recheck Status Antibody Screen Spec Expiration Date Disposition Clinical Impression: Abnormal laboratory test Disposition: HOME SELF-CARE Condition: Good Is patient prescribed a controlled substance at d/c from ED?: No Referrals: Matthew Tucker MD [Primary Care Provider] - 1-2 days Time of Disposition: 11:51
[2023-07-24 09:57] LABS: Anisocytosis Slight; Basophils # (A) 0.1 k/uL (0-0.2); Basophils % (A) 1 %; Eosinophils # (A) 0.1 k/uL (0-0.7); Eosinophils % (A) 2 %; HCT 34.8 % (34.0-46.0); HGB 11.2 gm/dL (11.4-16.0); Lymphocytes # (A) 1.3 k/uL (1.0-4.8); Lymphocytes % (A) 19 %; MCH 25.9 pg (25.0-35.0); MCHC 32.3 g/dL (31.0-37.0); MCV 80.1 fL (80.0-100.0); Mean Platelet Volume 8.7; Microcytosis Slight; Monocytes # (A) 0.5 k/uL (0-1.0); Monocytes % (A) 7 %; Neutrophils # (A) 4.6 k/uL (1.3-7.7); Neutrophils % (A) 69 %; Platelet Count 222 k/uL (150-450); RBC 4.34 m/uL (3.80-5.40); RDW 16.6 % (11.5-15.5); WBC 6.6 k/uL (3.8-10.6)
[2023-07-24 10:07] LABS: INR 0.9 (<1.2); Prothrombin Time 10.2 sec (10.0-12.5)
[2023-07-24 10:08] LABS: Partial Thromboplastin Time 22.3 sec (22.0-30.0)
[2023-07-24 10:15] LABS: African American GFR (CKD) 83 (>60 ml/min/1.73 sqM); Anion Gap 7 mmol/L; Blood Urea Nitrogen 22 mg/dL (7-17); Calcium 10.3 mg/dL (8.4-10.2); Carbon Dioxide 20 mmol/L (22-30); Chloride 106 mmol/L (98-107); Glucose 112 mg/dL (74-99); Non-African American GFR(CKD) 72 (>60 ml/min/1.73 sqM); Potassium 4.6 mmol/L (3.5-5.1); Sodium 133 mmol/L (137-145)
[2023-07-24 10:28] VITALS: RESP 17
[2023-07-24 11:49] VITALS: BP 151/78; PULSE 72
[2023-07-24 12:29] VITALS: TEMP 98.2
== END 2023-07-24 12:00 | disposition home or self-care (01) ==
LOC: EC 08:44
DX: R79.9 Abnormal finding of blood chemistry, unspecified (principal); Z88.0 Allergy status to penicillin; Z88.1 Allergy status to other antibiotic agents; Z88.2 Allergy status to sulfonamides; Z91.09 Other allergy status, other than to drugs and biological substances; Z87.891 Personal history of nicotine dependence
CPT/HCPCS: 36415; 80048; 82272; 85025; 85610; 85730; 86850; 86900; 86901; 99284

== ENCOUNTER 2023-07-26 15:03 | Day surgery (SDC) | payer MEDICARE ==
[2023-07-26] MEDS: SODIUM CHLORIDE 0.9% 1,000 ML IV SCH (16:10)
[2023-07-26] MEDS ORDERED: fentaNYL (PF) 50 MCG/ML 2 ML AMP ONE (17:21)
[2023-07-26] MEDS ORDERED: MIDAZOLAM 2 MG/2 ML VIAL ONE (17:21)
[2023-07-26] MEDS ORDERED: LIDOCAINE 1% INJ 10MG/ML (20 ML MDV) ONE (17:42)
[2023-07-26] MEDS: IOPAMIDOL-370 100ML BTL INJ ONE (17:44)
[2023-07-26] MEDS: LIDOCAINE 1% INJ 10MG/ML (20 ML MDV) SQ ONE ×2 (17:56→18:52)
[2023-07-26] MEDS: ceFAZolin 1 GM in SODIUM CHLORIDE 0.9% IRRIG BTL 250 ML IRRIGATION PRN (18:13)
[2023-07-26] MEDS ORDERED: ACETAMINOPHEN TAB 325 MG TAB PO PRN (19:29)
--- NOTE | 2023-07-26 19:41 | P.EPCON ---
Electrophysiology Consult - EP Consult Electrophysiology Consult: Diagnosis Symptomatic bradycardia, unprovoked, no triggering factors Underlying significant AV node disease Sick sinus syndrome Long pauses up to 9 seconds associated with presyncope/syncope Procedure Dual-chamber pacemaker implantation with conduction system pacing (left bundle pacing) Left upper extremity venogram Details Patient was brought to the EP lab in a fasting state. Written informed consent was obtained prior to the procedure. Conscious sedation provided by GENERAL OPERATIONS AGENT. IV antibiotics administered. Local anesthesia administered. A 4 cm incision made in the pectoral area. Subfascial pocket made. Venous accesses obtained Venous sheaths placed. Leads placed in the right heart. 2 sets of pacing cables were used; one for backup temporary pacing and the other for assessment of current of injury and signal analysis. A 52 cm atrial pacing lead was first positioned in the RV apex for temporary pacing during mapping and conduction system pacing Thresholds were interrogated and backup high output pacing was provided This atrial lead was then removed from the right ventricle and later positioned in the right atrial appendage and the permanent lead A deflected sheath was prepped. A coronary sinus decapolar catheter was placed within this sheath. The catheter along with the sheath was then passed into the right heart, the catheter was prolapsed across the tricuspid valve, into the right ventricle and then further into the right ventricular outflow tract across the pulmonic valve into the pulmonary artery. This sheath was slid over this decapolar catheter into the RVOT. Thereafter the catheter last sheath assembly was withdrawn from the RVOT along the septum to the mid septal area. The sheath was appropriately to to map the right ventricular aspect of the septum. The decapolar catheter was withdrawn, the sheath flushed again and the screw-in pacing lead placed within the sheath. Further detailed unipolar pace-mapping of the septum was performed and once the appropriate based morphology was obtained on lead V1, the lead was screwed into the septum. The lead was screwed in 4-5 returns at a time while monitoring the current of injury, the pacing impedance changes and the paced QRS morphology. The stimulus to peak of V6 QRS was measured at each step. Once a QR or rSR pattern of paced QRS in lead V1 was obtained, a left bundle signal was sought. Impedance was measured and thresholds were measured. An impedance drop of 100-200 ohms but above 550 ohms was targeted along with an unchanged vector of the current of injury signal. The final positioning was based on the QRS morphology in lead V1 and a short stimulus to peak of the V6 QRS of less than 90 ms. The sheath was withdrawn, stability of the pacing lead deep in the septum was confirmed on PLUMMER and GIBRALTARIAN views and the sheath was slipped and an adequate heel was provided for the lead. Unipolar and bipolar electrogram morphology obtained Atrial lead positioned in the right atrial appendage. Sensing, thresholds and impedances measured following positioning and securing the lead in the right atrial appendage Medtronic model #5076, 52 cm in length P waves 4.4 mV pacing impedance 827 ohms and pacing threshold 0.75 V at point 4 ms Left bundle lead parameters R waves 14.6 mV, pacing impedance 905 ohms and pacing threshold 0.5 V at point 4 ms Selective left posterior fascicle pacing Typical right bundle with a very short stimulus-V6 peak of 45 ms The morphology was identical to her intrinsic morphology Device datastage architect: Dual-chamber pacemaker Medtronic SOPHY MRI Dual-chamber pacemaker device connected to the leads and placed in the subfascial pocket Patient tolerated the procedure well without acute complications Pacemaker programming: DDD 60-130 Paced AV delay of 200 ms
--- NOTE | 2023-07-26 19:44 | P.PRLE ---
RE: Jeny Henderson Dear Dr. Tucker Mrs. Henderson underwent dual-chamber pacemaker implantation with left bundle pacing for the management of severe sick sinus syndrome and severe AV node disease Her loop monitor recently showed a 9-second pause I will now start her on beta-blockers 50 mg p.o. daily metoprolol succinate in addition to her current medications She will continue all prior medications including anticoagulation Sincerely Wilbert Rosario
[2023-07-26] MEDS: METOPROLOL SUCCINATE (ER) 50 MG TAB.ER.24H PO SCH (21:36)
[2023-07-26] MEDS: LOSARTAN 50 MG TAB PO SCH (21:36)
[2023-07-26] MEDS: ATORVASTATIN 10 MG TAB PO SCH (21:36)
[2023-07-26] MEDS: ACETAMINOPHEN IV (For NPO) 1,000 MG in EMPTY BAG 1 BAG IVPB ONE (21:36)
[2023-07-27 01:22] VITALS: PULSE 60
[2023-07-27] MEDS: LEVOTHYROXINE 75 MCG TAB PO SCH (06:45)
--- NOTE | 2023-07-27 07:39 | XR ---
EXAMINATION TYPE: XR chest 2V DATE OF EXAM: 07/27/2023 COMPARISON: NONE HISTORY: Shortness of breath TECHNIQUE: Frontal and lateral views of the chest are obtained. FINDINGS: Scattered senescent parenchymal changes noted. Hyperinflation compatible with COPD. No evidence for infiltrate. No evidence for atelectasis. Dual-lead pacer device is in place with distal leads within the right atrium and right ventricle. No evidence for pneumothorax. Heart size is stable. Mediastinal structures are stable and grossly unremarkable. No evidence for hilar prominence. Degenerative changes dorsal spine. IMPRESSION: 1. No evidence for acute pulmonary disease.
[2023-07-27 07:59] VITALS: BP 125/75; RESP 16; TEMP 98.4
[2023-07-27] MEDS: APIXABAN 5 MG TAB PO SCH (08:58)
[2023-07-27] MEDS: amLODIPine 5 MG TAB PO SCH (08:58)
[2023-07-27] MEDS: ESCITALOPRAM 10 MG TAB PO SCH (08:58)
--- NOTE | 2023-07-27 09:26 | P.DS ---
Providers Date of admission: 07/26/23 Attending physician: Wilbert Rosario Primary care physician: Matthew Tucker MD Assessment: The patient is an 82-year-old female who follows in the office with Dr. SARAH Daly. She underwent dual-chamber pacemaker implantation yesterday with Dr. Rosario for symptomatic bradycardia and long pauses up to 9 seconds. Patient was interviewed and examined resting comfortably in bed. No complications overnight. She denies any current pain. No dizziness or lightheadedness when standing and ambulating. Device interrogation was completed this morning. EKG shows left bundle pacing. GENERAL: Well-appearing, well-nourished and in no acute distress. NECK: Supple without JVD or thyromegaly. LUNGS: Breath sounds clear to auscultation bilaterally. Respiration equal and unlabored. No wheezes, rales or rhonchi. HEART: Regular rate and rhythm without murmurs, rubs or gallops. S1 and S2 heard. Dressing clean dry and intact. EXTREMITIES: Normal range of motion, no edema. No clubbing or cyanosis. Peripheral pulses intact and strong. TELEMETRY: Paced rhythm overnight IMPRESSION: Sick sinus syndrome Status post pacemaker implantation Paroxysmal atrial fibrillation Hypertension PLAN: Patient may be discharged Outpatient follow-up with device clinic and SARAH Daly in 1 week I am dictating on behalf of Dr Wilbert Rosario's history/physical and assessment/plan. Plan - Discharge Summary Discharge Rx Participant: No New Discharge Prescriptions: New Metoprolol Succinate [Toprol XL] 50 mg PO DAILY #90 tab No Action Atorvastatin [Lipitor] 10 mg PO HS Losartan Potassium [Cozaar] 50 mg PO BID Apixaban [Eliquis] 5 mg PO BID amLODIPine [Norvasc] 5 mg PO DAILY Unk Vitamin D3 1 tab PO DAILY Unk Calcium 1 tab PO DAILY Escitalopram [Lexapro] 10 mg PO DAILY Levothyroxine Sodium [Euthyrox] 75 mcg PO DAILY #90 tablet Discharge Medication List Atorvastatin [Lipitor] 10 mg PO HS 01/13/16 [History] Losartan Potassium [Cozaar] 50 mg PO BID 01/13/16 [History] Apixaban [Eliquis] 5 mg PO BID 02/28/23 [History] Escitalopram [Lexapro] 10 mg PO DAILY 02/28/23 [History] Levothyroxine Sodium [Euthyrox] 75 mcg PO DAILY #90 tablet 05/28/23 [Rx] Unk Calcium 1 tab PO DAILY 07/24/23 [History] Unk Vitamin D3 1 tab PO DAILY 07/24/23 [History] amLODIPine [Norvasc] 5 mg PO DAILY 07/24/23 [History] Metoprolol Succinate [Toprol XL] 50 mg PO DAILY #90 tab 07/26/23 [Rx] Follow up Appointment(s)/Referral(s): Wilbert Rosario MD [STAFF PHYSICIAN] - 08/03/23 3:00 pm (FOLLOW UP APPT 08/03/23 AT 3PM Follow-up with Dr. Daly as previously scheduled) Activity/Diet/Wound Care/Special Instructions: PATIENT EDUCATION MATERIAL Instructions following a heart rhythm device implant. 1. Keep dressing DRY for 5 DAYS. You may cover the area with Saran or Cling Wrap, prior to a shower. 2. The dressing will be removed in the Device Clinic at [facility]. Absorbable sutures were used to close the wound. 3. Avoid raising the left arm above the shoulder level. 4 week restriction 4. Avoid arm movements, like backscratching, rubbing the head, or pulling on a cord. 4 weeks restriction 5. Gentle range of motion movements of the shoulder, closest to the incision should be performed to avoid a frozen shoulder. (Pendulum exercises of the shoulder) 6. The opposite arm may be used freely. 7. Avoid driving for 7 days. 8. Avoid activities such as golfing, swimming, weed whacking, lifting more than 10 pounds weight, bowling, gymnastics and weight training/lifting. (6 weeks restriction) 9. Activities such as wood chopping with an axe, pull-ups in the gymnasium, power lifting, arc-welding, being close to home induction cooktops will always be a problem. 10. Arm sling is only a reminder not to raise the arm above the head. You do not need to keep the arm completely immobilized. Your free to move the arm and use it and for normal activities. In case of any problems, please call [facility], Jalil Mitchell, @ [phone], Attention: Device Clinic Device clinic follow-up in 5 days Follow-up with primary laundry pricing clerk in 2-3 months Add metoprolol succinate 50 mg p.o. daily Discharge Disposition: HOME SELF-CARE
== END 2023-07-27 11:38 | disposition home or self-care (01) ==
LOC: CATHEP 15:03 → 6NMEDSUR 19:23 → CATHEP 07-27 11:38
PROVIDERS: ATTEND Internal Medicine Clinical Cardiac Electrophysiology
DX: I49.5 Sick sinus syndrome (principal); I48.0 Paroxysmal atrial fibrillation; I48.3 Typical atrial flutter; I10 Essential (primary) hypertension; Z79.01 Long term (current) use of anticoagulants; Z79.899 Other long term (current) drug therapy; Z88.2 Allergy status to sulfonamides; Z98.890 Other specified postprocedural states
CPT/HCPCS: 33208; 71046; C1769 ×2; C1730; C1887; C1892; C1898; C1785; J0690; J2001; J0131; Q9967

== ENCOUNTER → 2023-10-19 | Outpatient (CLI) | payer MEDICARE ==
--- NOTE | 2023-10-19 16:18 | CT ---
EXAMINATION TYPE: CT brain wo con CT DLP: 1047.1 mGycm, Automated exposure control for dose reduction was used. DATE OF EXAM: 10/19/2023 3:46 PM COMPARISON: None. 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 Contrast used: None. Oral contrast used: None. FINDINGS: Brain: Extra-axial spaces: No abnormal extra-axial fluid collections. Ventricular system: Within normal limits Cerebral parenchyma: Cerebral atrophy. No acute intraparenchymal hemorrhage or mass effect. The wilkes -white junction is well differentiated. Scattered hypoattenuating areas are seen within the white mat ter. Cerebellum: Unremarkable. Mass effect: No evidence of midline shift. Intracranial vasculature: Atherosclerotic calcifications of the intracranial vessels. Soft tissues: Normal. Calvarium/osseous structures: No depressed skull fracture. Paranasal sinuses and mastoid air cells: Mild scattered paranasal sinus disease. Visualized orbits: Orbital contents are intact. IMPRESSION: 1. No acute intracranial process. 2. Nonspecific white matter changes, likely secondary to chronic small vessel ischemic disease.
== END | disposition home or self-care (01) ==
LOC: RADCTMAIN 15:28
PROVIDERS: ATTEND Internal Medicine Interventional Cardiology
DX: I49.5 Sick sinus syndrome (principal); Z79.01 Long term (current) use of anticoagulants
CPT/HCPCS: 70450